=== PATIENT | female | born 1955 | race Two or more races ===

== ENCOUNTER 2021-02-24 09:58 | Outpatient (CLI) | payer OTHER | END 2021-02-24 10:06 | disposition home or self-care (01) | LOC: LAB 09:58 | PROVIDERS: ATTEND Orthopaedic Surgery | DX: E55.9 Vitamin D deficiency, unspecified (principal); M85.9 Disorder of bone density and structure, unspecified; E21.3 Hyperparathyroidism, unspecified; M81.8 Other osteoporosis without current pathological fracture; E56.1 Deficiency of vitamin K; D48.7 Neoplasm of uncertain behavior of other specified sites; E88.89 Other specified metabolic disorders ==